=== PATIENT | female | born 1995 | race Caucasian/White ===

== ENCOUNTER 2016-09-15 19:53 | Emergency (ER) | payer BC, SELFPAY ==
--- NOTE | ~2016-09-15 | ER ---
PATIENT'S NAME: ALEX SIMS [facility] AGE: 21 Y [address] ROOM: [place] [address] LOCATION: [facility] ADMIT DATE: 09/15/2016 ER/Outpatient Report DISCHARGE DATE: 09/15/2016 FAMILY PHYSICIAN: Ivette Perez APRN ATTENDING PHYSICIAN: Tristin Eli CHIEF COMPLAINT: Right-sided abdominal pain. TIME OF PATIENT ARRIVAL: 1953 hours. TIME OF PATIENT EVALUATION: 2009 hours. HISTORY OF PRESENT ILLNESS: This is a 21-year-old female who presents to the ER. She states she has had some right-sided abdominal pain that started Friday morning. The patient states her pain is located kind of in her right flank and right upper quadrant area and she states that it is constantly there. She says at times it feels like a contraction type pain. She has not noticed any fevers, has had no diarrhea, but has had vomiting 2-3 times a day since Friday. She has had no urinary frequency or urgency. She states that she has never had anything like this before. She does not really associated pain with food. She states it worsens if she does some activity and bends over, but she states it also feels better when she is up and around as well. She was seen in [facility] on Friday. She had a UA and some labs done that were within the normal limit and was sent home with Vivek. She states that [place] still takes the pain away, but her pain does come back. ALLERGIES: NO KNOWN ALLERGIES. MEDICATIONS: Please see medication list in nurse's notes. PAST MEDICAL HISTORY: Chronic low back pain, she has had frequent urinary tract infections. SOCIAL HISTORY: She does chew tobacco one can a week and denies any drug or alcohol use. REVIEW OF SYSTEMS: A 10-point review of systems was completed and was negative with the exception of those discussed in the HPI. PATIENT'S NAME: ALEX SIMS [facility] AGE: 21 Y [address] ROOM: [place], [place] [address] LOCATION: [facility] ADMIT DATE: 09/15/2016 ER/Outpatient Report DISCHARGE DATE: 09/15/2016 FAMILY PHYSICIAN: Chris, Ivette A [employer] ATTENDING PHYSICIAN: Tristin Eli PHYSICAL EXAMINATION: VITAL SIGNS: Height 5 feet 3 inches stated, weight 45 kg taken, blood pressure is 129/84, pulse 75, respirations 16, temperature 99.4 degrees with a temporal scanner, she is 97% on room air. Ulises Coma Score is 15. GENERAL: Alert, calm, well-developed, 21-year-old, in no acute distress. HEENT. Head normocephalic. Eyes, pupils are equal and reactive to light. She does display moist mucous membranes. LUNGS: Clear to auscultation bilaterally. No wheeze or crackles. Normal respiratory effort. HEART: Regular rate and rhythm. No lifts, thrills, or murmurs. ABDOMEN: Soft. She does have some tenderness in her right upper quadrant with palpation. She does not guard or have any rebound tenderness. She has no CVA tenderness with palpation. She has good bowel sounds throughout. No masses were palpated. EXTREMITIES: No clubbing, cyanosis, or edema. Full range of motion of all limbs. LABORATORY DATA AND IMAGING STUDIES: 1. CBC: White count is 7.3, hemoglobin 13.4, platelets 242, ANC of 4.2. CMS, creatinine is 1.2, estimated GFR is 56, otherwise unremarkable. Amylase 75, lipase 145, H pylori is negative. Urinalysis is negative for any infection. No blood in her urine. Urine HCG was negative. CT scan was done and does show a trace of free fluid within the large liver. She has evidence of mild constipation, no bowel obstruction, no urinary calculus seen, no other acute abnormalities were identified, this secured by [employer]. Ultrasound of the right upper quadrant was done and she does have an enlarged liver, but no other abnormalities were seen. IMPRESSION: 1. Right-sided abdominal pain. 2. Mild constipation. ASSESSMENT AND PLAN: We did start an IV here in the emergency room. Did give her some IV fluids and gave her a total of 4 mg of morphine throughout her ER stay and 4 mg of Zofran. We will dismiss her to home. We will send her home with a bottle of magnesium citrate to drink when she gets there. I also gave her a few more [place] to use for severe pain. Otherwise, she needs Tylenol or ibuprofen and she needs to continue to push fluids. I would like her to follow up with primary care physician in the next 1-2 days. The patient understands and agrees with care. PATIENT'S NAME: ALEX SIMS [facility] AGE: 21 Y [address] ROOM: [place], [place] [address] LOCATION: [facility] ADMIT DATE: 09/15/2016 ER/Outpatient Report DISCHARGE DATE: 09/15/2016 FAMILY PHYSICIAN: Ivette Perez APRN ATTENDING PHYSICIAN: Tristin Eli JACINTO RODRIGUES PA-C FOR MD STERLING BELTRAN/careyl /[id number] d: t: 09/19/162032, OUTPATIENT REPORT
[2016-09-15 20:43] LABS: BILIRUBIN URINE NEGATIVE (NEGATIVE); BLOOD URINE NEGATIVE /UL (NEGATIVE); COLOR URINE YELLOW (YELLOW); GLUCOSE URINE NEGATIVE (NEGATIVE); KETONE URINE NEGATIVE (NEGATIVE); LEUKOCYTES URINE NEGATIVE /UL (NEGATIVE); NITRITE URINE NEGATIVE (NEGATIVE); PROTEIN URINE NEGATIVE (NEGATIVE); TURBIDITY URINE CLEAR (CLEAR); UROBILINOGEN URINE NORMAL (NORMAL)
[2016-09-15 20:51] LABS: BASOPHIL % 0.4 %; EOSINOPHIL % 0.4 %; HEMATOCRIT 40.4 % (33.0-46.0); HEMOGLOBIN 13.4 g/dL (11.0-15.0); IMMATURE GRANULOCYTE % 0.1 %; LYMPHOCYTE # 2.5 K/uL (0.8-4.0); LYMPHOCYTE % 34.7 %; MCH 27.9 pg (27.0-34.0); MCHC 33.2 gm/dL (32.0-36.5); MCV 84.2 fl (83.0-98.0); MONOCYTE # 0.5 K/uL (0.0-1.0); MONOCYTE % 6.7 %; MPV 11.5 fl (9.4-12.4); NEUTROPHIL # (ANC) 4.2 K/uL (1.8-7.8); NEUTROPHIL % 57.7 %; NRBC % 0 /100WBC (0-0.00); PLATELET COUNT 242 K/uL (150-450); RDW-CV 14.5 % (11.9-14.6); WBC 7.3 K/uL (4.0-11.0)
[2016-09-15 21:07] LABS: ALBUMIN 3.8 gm/dL (3.5-5.0); ANION GAP 12.9 (10.0-19.0); CALCIUM 8.9 mg/dL (8.5-10.5); CREATININE 1.2 mg/dL (0.5-1.1); POTASSIUM 3.9 mMol/L (3.7-5.1); TOTAL BILIRUBIN 0.3 mg/dL (0.0-1.5); TOTAL PROTEIN 7.7 g/dL (6.0-8.4)
== END 2016-09-15 23:39 | disposition disaster alternative care site (69) ==
LOC: GMED 19:53
PROVIDERS: Physician Assistant Medical
DX: K59.00 Constipation, unspecified (principal); F17.220 Nicotine dependence, chewing tobacco, uncomplicated
CPT/HCPCS: J2270; J2405; J7030; Q9967